=== PATIENT | male | born 1985 | race Caucasian/White ===

== ENCOUNTER → 2022-02-17 | Outpatient (CLI) | payer BC ==
[~2022-02-17] MED LIST: CIPRO500 MG PO; FLAGYL500 MG PO; PRILOSEC OTC20 MG PO; PROTONIX40 MG PO
[2022-02-17 14:21] LABS: HEMOGLOBIN 15.4 gm/dl (14.0-17.5); RED BLOOD COUNT 5.16 M/UL (4.20-5.50)
[2022-02-17 14:34] LABS: BUN/CREATININE RATIO 14 (0-10)
[2022-02-18 08:14] LABS: ANTISTREPTOLYSIN O AB 160.5 IU/mL (0.0-200.0); RHEUMATOID ARTHRITIS FACTOR <10.0 IU/mL (<14.0); VITAMIN D, 25-HYDROXY 11.7 ng/mL (30.0-100.0)
[2022-02-18 10:14] LABS: HCV ANTIBODY <0.1 (0.0-0.9)
[2022-02-18 16:09] LABS: LYME IGG/IGM AB <0.91 ISR (0.00-0.90)
[2022-02-21 10:12] LABS: SARS-COV-2 SPIKE AB INTERP Positive (.)
[2022-02-21 10:37] LABS: SARS-COV-2 SEMI-QUANT TOTAL AB See Dilution U/mL (Negative<0.8)
== END ==
LOC: ECHO 13:15 → NM 15:00
PROVIDERS: Nurse Practitioner Family
DX: R06.02 Shortness of breath (principal); R68.89 Other general symptoms and signs; M54.2 Cervicalgia; M54.50 Low back pain, unspecified; M25.561 Pain in right knee; M25.562 Pain in left knee; M25.511 Pain in right shoulder; M25.512 Pain in left shoulder; M25.50 Pain in unspecified joint; K21.9 Gastro-esophageal reflux disease without esophagitis; I08.1 Rheumatic disorders of both mitral and tricuspid valves
CPT/HCPCS: ECHO; 36415; 71046; 72040; 72070; 72100; 73030; 73562; 80053; 80061; 82607; 84439; 84443; 84550; 85025; 85652; 86038; 86060; 86141; 86431; 86618; 86803; 93017; 93306